=== PATIENT | male | born 1990 | race Caucasian/White ===

== ENCOUNTER 2016-05-11 08:55 | Emergency (ER) | payer BC ==
[2016-05-11] MEDS ORDERED: LORazepam 2 MG/ML SYRINGE IV STA (09:50)
[2016-05-11] MEDS ORDERED: SODIUM CHLORIDE 0.9% 500 ML IV STA (09:50)
--- NOTE | 2016-05-11 10:00 | ED ---
Seizure HPI - General Chief Complaint: Seizure Stated Complaint: Seizure Time Seen by Provider: 05/11/16 09:36 Source: patient, RN notes reviewed Mode of arrival: ambulatory Limitations: no limitations - History of Present Illness Initial Comments: 26-year-old male presents to the emergency department with a chief complaint of seizures. The patient wasn't diagnosed with seizures by EEG by a neurologist who state on Tegretol. Patient states that while a few weeks ago he had his first grand mal type seizure. He was diagnosed with epilepsy. Patient states that then today he had another seizure he was in bed he states he did not fall he did not get hurt. Family states they're concerned because he had a seizure today. They should be seen. They state that he did miss a few doses of his medication. He states he does have a neurologist. Appointment on with his neurologist. He states they do but he said there is no loss bowel or bladder function. He does admit to some left-sided arm pain and leg pain. witnessed a seizure states it was about 30 seconds. She states it was fully mouth and he was unconscious during the experience. Family states that concerned due to the seizures without that they should be evaluated.Patient denies any recent fever, chills, shortness of breath, chest pain, back pain, abdominal pain, nausea vomiting, numbness or tingling, dysuria or hematuria, constipation or diarrhea, headaches or visual changes, or any other current symptoms. - Related Data Home Medications Medication Instructions Recorded Confirmed carBAMazepine [carBAMazepine ER] 300 mg PO DAILY 05/11/16 05/11/16 Allergies Allergy/AdvReac Type Severity Reaction Status Date / Time No Known Allergies Allergy Verified 05/11/16 09:32 Review of Systems ROS Statement: Those systems with pertinent positive or pertinent negative responses have been documented in the HPI. ROS Other: All systems not noted in ROS Statement are negative. Past Medical History Past Medical History: Seizure Disorder History of Any Multi-Drug Resistant Organisms: None Reported Past Surgical History: Cholecystectomy Past Psychological History: No Psychological Hx Reported Smoking Status: Never smoker Past Alcohol Use History: Occasional Past Drug Use History: None Reported General Exam - General Exam Comments Initial Comments: General: The patient is awake and alert, in no distress, and does not appear acutely ill. Eye: Pupils are equal, round and reactive to light, extra-ocular movements are intact; there is normal conjunctiva bilaterally. No signs of icterus. Ears, nose, mouth and throat: There are moist mucous membranes and no oral lesions. Neck: The neck is supple, there is no tenderness. Cardiovascular: There is a regular rate and rhythm. No murmur, rub or gallop is appreciated. Respiratory: Lungs are clear to auscultation, respirations are non-labored, breath sounds are equal. No wheezes, stridor, rales, or rhonchi. Gastrointestinal: Soft, non-distended, non-tender abdomen without masses or organomegaly noted. There is no rebound or guarding present. No CVA tenderness. Bowel sounds are unremarkable. Back: There is no tenderness to palpation in the midline. There is no obvious deformity. No rashes noted. Musculoskeletal: Normal ROM, tenderness over left elbow left hip and left knee There is no pedal edema. There is no calf tenderness or swelling. Sensation intact. Pulses equal bilaterally 2+. Neurological: CN II-XII intact, There are no obvious motor or sensory deficits. Coordination appears grossly intact. Speech is normal. Skin: Skin is warm and dry and no rashes or lesions are noted. Psychiatric: Cooperative, appropriate mood & affect, normal judgment. Limitations: no limitations Course Vital Signs 05/11/16 05/11/16 09:12 10:07 Temperature 97.9 F Pulse Rate 90 85 Respiratory 20 18 Rate Blood Pressure 124/63 110/53 O2 Sat by Pulse 98 97 Oximetry Medical Decision Making - Medical Decision Making 26-year-old male presents emergency 5 chief complaint of seizure. At this time patient does have a history of seizures he did miss a few doses of his medications. Patient did not his head he was safe during the procedure. At this time we'll get x-rays of the patient's areas of concern. We did do blood work as well as get a seizure level measured. We did inform the patient that he is not allowed to drive for at least 6 months or until cleared by neurology. We discussed return parameters and follow-up. We discussed seizure care seizure follow-up. The patient stated that he understood and all his questions have been answered. At this time the patient will be discharged home. - Lab Data Result diagrams: 05/11/16 10:20 05/11/16 10:20 Lab Results 05/11/16 05/11/16 Range/Units 10:20 10:20 WBC 10.8 H (3.8-10.6) k/uL RBC 5.01 (4.30-5.90) m/uL Hgb 15.1 (13.0-17.5) gm/dL Hct 43.9 (39.0-53.0) % MCV 87.7 (80.0-100.0) fL MCH 30.1 (25.0-35.0) pg MCHC 34.4 (31.0-37.0) g/dL RDW 12.6 (11.5-15.5) % Plt Count 247 (150-450) k/uL Neutrophils % 81 % Lymphocytes % 11 % Monocytes % 5 % Eosinophils % 1 % Basophils % 0 % Neutrophils # 8.8 H (1.3-7.7) k/uL Lymphocytes # 1.2 (1.0-4.8) k/uL Monocytes # 0.6 (0-1.0) k/uL Eosinophils # 0.1 (0-0.7) k/uL Basophils # 0.0 (0-0.2) k/uL Sodium 140 (137-145) mmol/L Potassium 4.7 (3.5-5.1) mmol/L Chloride 106 (98-107) mmol/L Carbon Dioxide 24 (22-30) mmol/L Anion Gap 10 mmol/L BUN 13 (9-20) mg/dL Creatinine 0.90 (0.66-1.25) mg/dL Est GFR (MDRD) Af Amer >60 (>60 ml/min/1.73 sqM) Est GFR (MDRD) Non-Af >60 (>60 ml/min/1.73 sqM) Glucose 99 (74-99) mg/dL Calcium 9.5 (8.4-10.2) mg/dL Total Bilirubin 0.6 (0.2-1.3) mg/dL AST 35 (17-59) U/L ALT 30 (21-72) U/L Alkaline Phosphatase 77 (38-126) U/L Total Protein 7.7 (6.3-8.2) g/dL Albumin 4.5 (3.5-5.0) g/dL Carbamazepine <3.0 ug/mL - Radiology Data Radiology results: report reviewed, image reviewed Disposition Clinical Impression: Generalized seizure Disposition: HOME SELF-CARE Condition: Stable Instructions: Recurrent Seizures in Adults (ED) Additional Instructions: Please use medication as discussed. Please follow up with family doctor if symptoms have not improved over the next two days. Please return to the emergency room if your symptoms increase or worsen or for any other concerns. Referrals: Jonna Ward MD [Primary Care Provider] - 1-2 days Time of Disposition: 11:26
[2016-05-11 10:47] LABS: Basophils % (A) 0 %; CH 31.1; CHCM 35.6; Eosinophils # (A) 0.1 k/uL (0-0.7); Eosinophils % (A) 1 %; HCT 43.9 % (39.0-53.0); HDW 2.64; HGB 15.1 gm/dL (13.0-17.5); Luc # (Auto) 0.13; Luc % (Auto) 1; Lymphocytes # (A) 1.2 k/uL (1.0-4.8); Lymphocytes % (A) 11 %; MCH 30.1 pg (25.0-35.0); MCHC 34.4 g/dL (31.0-37.0); MCV 87.7 fL (80.0-100.0); Mean Platelet Volume 6.5; Monocytes # (A) 0.6 k/uL (0-1.0); Monocytes % (A) 5 %; Neutrophils # (A) 8.8 k/uL (1.3-7.7); Neutrophils % (A) 81 %; RBC 5.01 m/uL (4.30-5.90); RDW 12.6 % (11.5-15.5); WBC 10.8 k/uL (3.8-10.6); WBC (Perox) 11.03
[2016-05-11 11:03] LABS: ALT 30 U/L (21-72); AST 35 U/L (17-59); Alkaline Phosphatase 77 U/L (38-126); Anion Gap 10 mmol/L; Blood Urea Nitrogen 13 mg/dL (9-20); Calcium 9.5 mg/dL (8.4-10.2); Carbamazepine (Tegretol) <3.0 ug/mL; Carbon Dioxide 24 mmol/L (22-30); Chloride 106 mmol/L (98-107); Glucose 99 mg/dL (74-99); Non-African American GFR(MDRD) >60 (>60 ml/min/1.73 sqM); Potassium 4.7 mmol/L (3.5-5.1); Sodium 140 mmol/L (137-145); Total Bilirubin 0.6 mg/dL (0.2-1.3); Total Protein 7.7 g/dL (6.3-8.2)
--- NOTE | 2016-05-11 11:14 | XR ---
Left hip HISTORY: Seizure, pain 2 views of the left hip No comparisons Bone mineralization, joint spaces and alignment are maintained. IMPRESSION: No fracture or dislocation.
--- NOTE | 2016-05-11 11:17 | XR ---
EXAMINATION TYPE: 3 views left elbow. 3 views left knee. DATE OF EXAM: 05/11/2016 11:02 AM COMPARISON: NONE HISTORY: 26-year-old male with left-sided pain after seizure today FINDINGS: Left elbow: No evidence for acute fracture, subluxation, or dislocation. Suboptimal obliquity on the lateral view for assessment of elbow joint effusion. Left knee: Extensor mechanism is intact. No needle effusion. No acute fracture, subluxation, or dislocation. IMPRESSION: 1. Left elbow: Obliquity on the lateral view precludes assessment of elbow joint effusion. No acute o sseous abnormality seen. 2. Left knee: No acute osseous abnormality seen.
[2016-05-11 11:48] VITALS: BP 107/53; PULSE 98; RESP 19; TEMP 98.2
== END 2016-05-11 12:11 | disposition home or self-care (01) ==
LOC: EC 08:55
DX: G40.909 Epilepsy, unspecified, not intractable, without status epilepticus (principal); M79.602 Pain in left arm; M79.605 Pain in left leg; Z79.899 Other long term (current) drug therapy
CPT/HCPCS: 36415; 80156; 80053; 85025; 73502; 73080; 73562; 99285; 96374; 96361; J2060

== ENCOUNTER 2017-11-02 21:17 | Emergency (ER) | payer BC ==
[2017-11-02 21:40] VITALS: BP 143/82; PULSE 82; RESP 18; TEMP 98.9
[2017-11-02] MEDS ORDERED: IBUPROFEN 800 MG TAB PO STA (22:19)
--- NOTE | 2017-11-02 22:45 | XR ---
EXAMINATION TYPE: XR ankle complete RT DATE OF EXAM: 11/02/2017 COMPARISON: NONE HISTORY: Pain and injury TECHNIQUE: 3 views FINDINGS: There is soft tissue swelling over the lateral malleolus. Ankle mortise is anatomic. There is no evidence of a fracture. IMPRESSION: Soft tissue swelling. No fracture.
--- NOTE | 2017-11-02 22:46 | ED ---
General Adult HPI - General Chief complaint: Extremity Injury, Lower Stated complaint: R ankle injury Time Seen by Provider: 11/02/17 22:08 Source: patient Mode of arrival: ambulatory Limitations: no limitations - History of Present Illness Initial comments: This is a 27-year-old male with no past medical history presents today for chief complaint of right ankle pain. Patient states that early this morning around 940 he was playing in her yard with his kids when he rolled his ankle forward. Patient denies any dislocation. Patient states that he did feel a pop. He was able to weight-bear and ambulate following the injury and walk on it all day. He was at the movies this evening when he noticed increasing pain in the right ankle and some mild swelling. He was concerned for possible fracture and he presented to the emergency department today for x-rays. Patient denies any numbness, tingling, paresthesias, loss sensation, muscle weakness, pain out of proportion, pallor or coolness of extremity. Patient denies any recent fever, chills, shortness of breath, chest pain, back pain, abdominal pain, nausea or vomiting, numbness or tingling, dysuria or hematuria, constipation or diarrhea, headaches or visual changes, or any other complaints. - Related Data Home Medications Medication Instructions Recorded Confirmed Fluconazole [Diflucan] 150 mg PO DAILY 11/02/17 11/02/17 Naproxen Sodium [Aleve] 220 mg PO DAILY PRN 11/02/17 11/02/17 Allergies Allergy/AdvReac Type Severity Reaction Status Date / Time No Known Allergies Allergy Verified 11/02/17 21:57 Review of Systems ROS Statement: Those systems with pertinent positive or pertinent negative responses have been documented in the HPI. ROS Other: All systems not noted in ROS Statement are negative. Constitutional: Denies: fever, chills Eyes: Denies: eye pain ENT: Denies: ear pain, throat pain Respiratory: Denies: cough, dyspnea Cardiovascular: Denies: chest pain, palpitations Endocrine: Denies: fatigue Gastrointestinal: Denies: abdominal pain, nausea, vomiting Genitourinary: Denies: urgency, dysuria Musculoskeletal: Reports: joint swelling, arthralgia. Denies: back pain Skin: Denies: rash, lesions Neurological: Denies: headache, weakness, numbness Past Medical History Past Medical History: Seizure Disorder History of Any Multi-Drug Resistant Organisms: None Reported Past Surgical History: Cholecystectomy Past Psychological History: No Psychological Hx Reported Smoking Status: Never smoker Past Alcohol Use History: Occasional Past Drug Use History: None Reported General Exam - General Exam Comments Initial Comments: General: The patient is awake and alert, in no distress, and does not appear acutely ill. Eye: Pupils are equal, round and reactive to light, extra-ocular movements are intact. No nystagmus. There is normal conjunctiva bilaterally. No signs of icterus. Ears, nose, mouth and throat: There are moist mucous membranes and no oral lesions. Cardiovascular: There is a regular rate and rhythm. No murmur, rub or gallop is appreciated. Respiratory: Lungs are clear to auscultation, respirations are non-labored, breath sounds are equal. No wheezes, stridor, rales, or rhonchi. Musculoskeletal: No obvious deformity or palpable step off palpated at the ankle joint. There is some mild soft tissue swelling no tenderness to patient over the lateral medial malleolus. No pain to patient over the proximal tibia- fibula. Patient is able to dorsiflex, plantarflex, inversion and eversion at the ankle joint. With increased pain with dorsi and plantarflexion with plantarflexion reproducing was pain, strength 5/5 for all these motions. No crepitus or laxity noted. No crepitus or laxity noted. Sensation intact of the lower extremities and feet bilaterally. Posterior tibial and dorsalis pedis pulses equal bilaterally 2+. Capillary refill less than 2 seconds. Compartments soft and compressible. Neurological: A&O x 3. CN II-XII intact, There are no obvious motor or sensory deficits. Coordination appears grossly intact. Speech is normal. Skin: Skin is warm and dry and no rashes or lesions are noted. Psychiatric: Cooperative, appropriate mood & affect, normal judgment. Limitations: no limitations Course Vital Signs 11/02/17 21:36 Temperature 98.9 F Pulse Rate 82 Respiratory 18 Rate Blood Pressure 143/82 O2 Sat by Pulse 98 Oximetry Medical Decision Making - Medical Decision Making Pt given ibuprofen 800mg for right ankel pain. X-ray of the right ankle was obtained, revealing no acute fracture or just patient. X-rays reviewed by myself and radiology. At this time feel patient history is consistent with a ankle sprain. There is no pain to compression of the proximal tibia-fibula, low suspicion for high ankle strain. Neurovascularly patient intact. At this time feel patient is stable for discharge with follow-up with primary care in 1- 2 days. Patient was instructed to follow-up with orthopedic surgery if symptoms persist greater than 1 week. Patient is instructed to rest, ice, elevate and compress ankle for the next week. Case discussed in detail with who agreed with impression and plan. Pt discharged ins table condition. Disposition Clinical Impression: Right ankle sprain Disposition: HOME SELF-CARE Condition: Good Instructions: Ankle Sprain (ED) Additional Instructions: Please use over the counter medication as discussed. Please follow-up with family doctor in the next 2 days of symptoms have not improved. Please see orthopedic surgery if symptoms persist for >1 week. Please return to emergency room if the symptoms increase or worsen or for any other concerns. Is patient prescribed a controlled substance at d/c from ED?: No Referrals: Jonna Ward MD [Primary Care Provider] - 1-2 days [facility] [Provider Group] - 11/09/17 Time of Disposition: 22:52
== END 2017-11-02 22:57 | disposition home or self-care (01) ==
LOC: EC 21:17
DX: S93.401A Sprain of unspecified ligament of right ankle, initial encounter (principal); Z79.899 Other long term (current) drug therapy; X50.9XXA Other and unspecified overexertion or strenuous movements or postures, initial encounter; Y93.6A Activity, physical games generally associated with school recess, summer camp and children; Y92.007 Garden or yard of unspecified non-institutional (private) residence as the place of occurrence of the external cause
CPT/HCPCS: 99283

== ENCOUNTER 2018-01-24 15:26 | Emergency (ER) | payer BC ==
[2018-01-24 15:30] VITALS: BP 132/74; PULSE 100; RESP 16; TEMP 97.3
[2018-01-24] MEDS ORDERED: HYDROcodone/APAP 10-325MG 1 EACH TAB PO ONE (15:36)
--- NOTE | 2018-01-24 15:40 | ED ---
Lower Extremity Injury HPI - General Chief Complaint: Extremity Injury, Lower Stated Complaint: Ankle injury Time Seen by Provider: 01/24/18 15:33 Source: patient, RN notes reviewed Mode of arrival: wheelchair Limitations: no limitations - History of Present Illness Initial Comments: 27-year-old male presents emergency Department chief complaint of right leg and foot pain. Patient states that he was going down his porch step states he stepped wrong and twisted. Patient has pain from his right knee to his distal foot region. He's had prior fracture on one of his lites was not sure which one. Patient states it swollen and is unable to bear any weight. Patient any paresthesias. Denies any head injury no loss conscious denies any other extremity injuries. - Related Data Home Medications Medication Instructions Recorded Confirmed Fluconazole [Diflucan] 150 mg PO DAILY 11/02/17 11/02/17 Naproxen Sodium [Aleve] 220 mg PO DAILY PRN 11/02/17 11/02/17 Previous Rx's Medication Instructions Recorded Ibuprofen [Motrin] 600 mg PO Q8HR PRN #30 tab 01/24/18 Allergies Allergy/AdvReac Type Severity Reaction Status Date / Time No Known Allergies Allergy Verified 01/24/18 15:30 Review of Systems ROS Statement: Those systems with pertinent positive or pertinent negative responses have been documented in the HPI. ROS Other: All systems not noted in ROS Statement are negative. Past Medical History Past Medical History: Seizure Disorder History of Any Multi-Drug Resistant Organisms: None Reported Past Surgical History: Cholecystectomy Past Psychological History: No Psychological Hx Reported Smoking Status: Never smoker Past Alcohol Use History: Occasional Past Drug Use History: None Reported General Exam Limitations: no limitations General appearance: alert, in no apparent distress Head exam: Present: atraumatic, normocephalic, normal inspection Neck exam: Present: normal inspection, full ROM. Absent: tenderness, meningismus, lymphadenopathy Respiratory exam: Present: normal lung sounds bilaterally. Absent: respiratory distress, wheezes, rales, rhonchi, stridor Cardiovascular Exam: Present: regular rate, normal rhythm, normal heart sounds. Absent: systolic murmur, diastolic murmur, rubs, gallop, clicks Extremities exam: Present: other (There is tenderness at the proximal tib-fib region, no tenderness about the right knee patient has good range of motion of the right knee neurovascular intact there is obvious deformity to the right ankle region with swelling, tenderness with palpation and distal foot tenderness.) Skin exam: Present: warm, dry, intact, normal color. Absent: rash Course Vital Signs 01/24/18 15:28 Temperature 97.3 F L Pulse Rate 100 Respiratory 16 Rate Blood Pressure 132/74 O2 Sat by Pulse 99 Oximetry Medical Decision Making - Medical Decision Making 27-year-old male present emergency from for right ankle injury. Patient x-rays tib-fib and right foot no acute fracture. Patient was placed in a stirrup Aircast and will follow-up with orthopedics. Return parameters were discussed. Disposition Clinical Impression: Right ankle sprain Disposition: HOME SELF-CARE Condition: Stable Instructions: Ankle Sprain (ED) Additional Instructions: Please return to the Emergency Department if symptoms worsen or any other concerns. Prescriptions: Ibuprofen [Motrin] 600 mg PO Q8HR PRN #30 tab PRN Reason: Pain Is patient prescribed a controlled substance at d/c from ED?: No Referrals: Jonna Ward MD [Primary Care Provider] - 1-2 days Jeet Solano MD [STAFF PHYSICIAN] - 1-2 days Time of Disposition: 16:33
--- NOTE | 2018-01-24 16:12 | XR ---
EXAMINATION TYPE: XR foot complete RT DATE OF EXAM: 01/24/2018 COMPARISON: NONE HISTORY: Pain TECHNIQUE: Three views are submitted. FINDINGS: The osseous structures are intact. There is no acute fracture or dislocation. Joint spaces are p reserved. IMPRESSION: 1. No acute fracture or dislocation. If symptoms persist, follow-up exam in 7 to 10 days could be ob tained.
--- NOTE | 2018-01-24 16:13 | XR ---
EXAMINATION TYPE: XR tibia fibula RT DATE OF EXAM: 01/24/2018 COMPARISON: NONE HISTORY: Pain TECHNIQUE: Two views are submitted. FINDINGS: The osseous structures are intact. The joint spaces are preserved. Soft tissue swelling of near the lateral margin of the fibula and ankle joint. IMPRESSION: 1. No acute osseous abnormality.
[2018-01-24] MEDS ORDERED: ACET/COD 300 MG/30 MG STARTER PACK 6 TAB BTL PO STA (16:31)
== END 2018-01-24 17:09 | disposition home or self-care (01) ==
LOC: EC 15:26
DX: S93.401A Sprain of unspecified ligament of right ankle, initial encounter (principal); X50.1XXA Overexertion from prolonged static or awkward postures, initial encounter; Y92.89 Other specified places as the place of occurrence of the external cause
CPT/HCPCS: 29515; 99283

== ENCOUNTER 2018-01-31 13:28 | Emergency (ER) | payer BC ==
[2018-01-31 13:57] VITALS: RESP 18
--- NOTE | 2018-01-31 15:04 | ED ---
General Adult HPI - General Chief complaint: Urogenital Stated complaint: testicle pain Time Seen by Provider: 01/31/18 14:47 Source: patient Mode of arrival: ambulatory Limitations: no limitations - History of Present Illness Initial comments: Patient 27-year-old male presented to the emergency room today with a chief complaint of left-sided testicular pain over the last 4 hours. Patient does work when he began having increased pain left lower quadrant of his abdomen. He states it felt like it shot down to the left testicle. He does admit that he went to urgent care was advised complete emergency room In all shots obtained. Patient states she's never had some symptoms in the past. He states he has persistent dull pain but at times it becomes very sharp. Patient denies any other symptoms at this time. Patient denies any recent fever, chills, shortness of breath, chest pain, back pain, nausea or vomiting, numbness or tingling, dysuria, hematuria, headaches or visual changes, or any other complaints. - Related Data Home Medications Medication Instructions Recorded Confirmed Fluconazole [Diflucan] 150 mg PO DAILY 11/02/17 11/02/17 Naproxen Sodium [Aleve] 220 mg PO DAILY PRN 11/02/17 11/02/17 Previous Rx's Medication Instructions Recorded Ibuprofen [Motrin] 600 mg PO Q8HR PRN #30 tab 01/24/18 Ibuprofen [Motrin] 600 mg PO Q6HR PRN #40 day 01/31/18 Sulfamethox-Tmp 800-160Mg [Bactrim 1 tab PO Q12HR #20 tab 01/31/18 DS 800-160 mg] Allergies Allergy/AdvReac Type Severity Reaction Status Date / Time No Known Allergies Allergy Verified 01/31/18 13:57 Review of Systems ROS Statement: Those systems with pertinent positive or pertinent negative responses have been documented in the HPI. ROS Other: All systems not noted in ROS Statement are negative. Past Medical History Past Medical History: Seizure Disorder History of Any Multi-Drug Resistant Organisms: None Reported Past Surgical History: Cholecystectomy Past Psychological History: No Psychological Hx Reported Smoking Status: Never smoker Past Alcohol Use History: Occasional Past Drug Use History: None Reported General Exam - General Exam Comments Initial Comments: General: The patient is awake and alert, in no distress, and does not appear acutely ill. Eye: Pupils are equal, round and reactive to light. Extra-ocular movements are intact. No nystagmus. There is normal conjunctiva bilaterally. No signs of icterus. Ears, nose, mouth and throat: There are moist mucous membranes and no oral lesions. Neck: The neck is supple, there is no tenderness or JVD. Cardiovascular: There is a regular rate and rhythm. No murmur, rub or gallop is appreciated. Respiratory: Lungs are clear to auscultation, respirations are non-labored, breath sounds are equal. No wheezes, stridor, rales, or rhonchi. Gastrointestinal: Soft, non-distended, non-tender abdomen without masses or organomegaly noted. There is no rebound or guarding present. No CVA tenderness. Musculoskeletal: Normal ROM, no tenderness. Sensation intact. Strength 5/5. Pulses equal bilaterally 2+. Neurological: A&O x 3. CN II-XII intact, There are no obvious motor or sensory deficits. Coordination appears grossly intact. Speech is normal. Skin: Skin is warm and dry and no rashes or lesions are noted. Psychiatric: Cooperative, appropriate mood & affect, normal judgment. : Patient does have tenderness to the lateral aspect of the left testicle. Positive cremasteric reflex. Limitations: no limitations Course Vital Signs 01/31/18 13:54 Temperature 98.5 F Pulse Rate 85 Respiratory 18 Rate Blood Pressure 121/71 O2 Sat by Pulse 100 Oximetry Medical Decision Making - Medical Decision Making Patient's ultrasound reviewed and shows no evidence for testicular torsion. There is evidence for a mass which is believed to be consistent with hematoma at this time. Case was discussed with attending physician Dr. Vuong who spoke with on-call urologist Dr. Guidry who has reviewed images and feels consistent with hematoma. Does recommend starting antibiotic to cover for possible infection and anti-inflammatories. Advised following up in the office tomorrow. - Lab Data Lab Results 01/31/18 Range/Units 15:13 Urine Color Light Yellow Urine Appearance Clear (Clear) Urine pH 6.0 (5.0-8.0) Ur Specific [place] 1.009 (1.001-1.035) Urine Protein Negative (Negative) Urine Glucose (UA) Negative (Negative) Urine Ketones Negative (Negative) Urine Blood Negative (Negative) Urine Nitrite Negative (Negative) Urine Bilirubin Negative (Negative) Urine Urobilinogen <2.0 (<2.0) mg/dL Ur Leukocyte Esterase Negative (Negative) Disposition Clinical Impression: Testicular pain, left Disposition: HOME SELF-CARE Condition: Good Instructions: Testicle Pain (ED) Additional Instructions: Please follow-up with urologist tomorrow as discussed. Please use medications as prescribed. Return here to the emergency room symptoms increase or worsen as discussed. Prescriptions: Ibuprofen [Motrin] 600 mg PO Q6HR PRN #40 day PRN Reason: Pain Sulfamethox-Tmp 800-160Mg [Bactrim DS 800-160 mg] 1 tab PO Q12HR #20 tab Is patient prescribed a controlled substance at d/c from ED?: No Referrals: Jonna Ward MD [Primary Care Provider] - 1-2 days Time of Disposition: 16:32
--- NOTE | 2018-01-31 15:06 | US ---
EXAMINATION TYPE: US scrotum with doppler. Grayscale and color Doppler Duplex imaging performed of mic phillips scrotum. DATE OF EXAM: 01/31/2018 COMPARISON: NONE CLINICAL HISTORY: Pain. EXAM MEASUREMENTS: TESTICLES: Right Testicle: 3.5 x 4.9 x 2.5 cm Left Testicle: 5 x 3.1 x 3.8 cm and there is mixed echogenicity noted within the left testicle, hyp oechoic focus is present is relatively avascular measuring 2.1 cm x 2.7 x 1.1 cm. There is increased color flow to the remainder of the left testis however. EPIDIDYMIS HEAD: Right Epididymis: 6 mm Left Epididymis: 10 mm Presence of hydroceles: Small right hydrocele. Presence of varicoceles: None Normal color flow to the right testis. Arterial and venous waveforms are noted to the right testis as well as portions of the left. IMPRESSION: Correlate for orchitis with possible small intratesticular abscess, posttraumatic hematom a within the differential, tumor not excluded, follow-up is recommended, consider urology consult
[2018-01-31 15:17] LABS: Appearance,Urine Clear (Clear); Bilirubin,Urine Negative (Negative); Blood,Urine Negative (Negative); Color,Urine Light Yellow; Glucose,Urine (UA) Negative (Negative); Ketones,Urine Negative (Negative); Leukocyte Esterase,Urine Negative (Negative); Nitrite,Urine Negative (Negative); Protein,Urine Negative (Negative); Specific Gravity,Urine 1.009 (1.001-1.035); Urobilinogen,Urine <2.0 mg/dL (<2.0)
--- NOTE | 2018-01-31 16:44 | ED ---
Medical Decision Making - Lab Data Lab Results 01/31/18 Range/Units 15:13 Urine Color Light Yellow Urine Appearance Clear (Clear) Urine pH 6.0 (5.0-8.0) Ur Specific [place] 1.009 (1.001-1.035) Urine Protein Negative (Negative) Urine Glucose (UA) Negative (Negative) Urine Ketones Negative (Negative) Urine Blood Negative (Negative) Urine Nitrite Negative (Negative) Urine Bilirubin Negative (Negative) Urine Urobilinogen <2.0 (<2.0) mg/dL Ur Leukocyte Esterase Negative (Negative) Disposition Clinical Impression: Testicular pain, left Disposition: HOME SELF-CARE Condition: Good Instructions: Testicle Pain (ED) Additional Instructions: Please follow-up with urologist tomorrow as discussed. Please use medications as prescribed. Return here to the emergency room symptoms increase or worsen as discussed. Prescriptions: Ibuprofen [Motrin] 600 mg PO Q6HR PRN #40 day PRN Reason: Pain Sulfamethox-Tmp 800-160Mg [Bactrim DS 800-160 mg] 1 tab PO Q12HR #20 tab Is patient prescribed a controlled substance at d/c from ED?: No Referrals: Jonna Ward MD [Primary Care Provider] - 1-2 days Bandar Guidry MD [STAFF PHYSICIAN] - 1-2 days
[2018-01-31 16:47] VITALS: BP 139/72; PULSE 89; TEMP 98.3
[2018-02-01 13:46] LABS: N. gonorrhoeae,PCR Negative (Neg,Equiv); Neisseria Source Urine
[2018-02-01 13:53] LABS: C. trachomatis,PCR Negative (Neg,Equiv); Chlamydia trachomatis Source Urine
== END 2018-01-31 16:46 | disposition home or self-care (01) ==
LOC: EC 13:28
DX: N50.812 Left testicular pain (principal); N50.89 Other specified disorders of the male genital organs; R10.32 Left lower quadrant pain; Z79.899 Other long term (current) drug therapy; Z90.49 Acquired absence of other specified parts of digestive tract
CPT/HCPCS: 76870; 81003; 87086; 87491; 87591; 93975; 99284